=== PATIENT | female | born 1955 | race Caucasian/White ===

== ENCOUNTER → 2017-04-09 14:22 | Outpatient (CLI) | payer MEDICAID ==
[2016-04-09 16:58] VITALS: BMI 35.1
[~2017-04-09 14:22] MED LIST: ALEVE220 MG PO; HYDROCODON-ACET15 ML PO; NEXIUM40 MG PO; ZOFRAN ODT4 MG/UDTAB PO
== END | disposition home or self-care (01) ==
LOC: D.CT 10:00
DX: R05 Cough (principal)